=== PATIENT | female | born 1955 | race Caucasian/White ===

== ENCOUNTER 2022-10-08 16:59 | Outpatient (CLI) | payer MEDICARE | END 2022-10-08 17:00 | disposition home or self-care (01) | LOC: BURRAD 16:59 | PROVIDERS: ATTEND Family Medicine | DX: S00.33XA Contusion of nose, initial encounter (principal); S50.02XA Contusion of left elbow, initial encounter; S52.125A Nondisplaced fracture of head of left radius, initial encounter for closed fracture | CPT/HCPCS: 70160 ==